=== PATIENT | male | born 1970 | race Two or more races ===

== ENCOUNTER → 2023-05-17 09:11 | Outpatient (REF) | payer BC, SELFPAY | LOC: RAD 09:11 | PROVIDERS: ATTENDING PHYSICIAN Internal Medicine Pulmonary Disease | DX: K85.80 Other acute pancreatitis without necrosis or infection (principal) | CPT/HCPCS: 76700 ==

== ENCOUNTER → 2024-08-03 14:39 | Outpatient (REF) | payer BC, SELFPAY | LOC: HWRAD 14:39 | PROVIDERS: ATTENDING PHYSICIAN Internal Medicine Pulmonary Disease | DX: I10 Essential (primary) hypertension (principal); I50.9 Heart failure, unspecified; M10.9 Gout, unspecified | CPT/HCPCS: 76770 ==

== ENCOUNTER → 2024-08-13 08:17 | Outpatient (REF) | payer BC, SELFPAY | LOC: REG 08:17 | PROVIDERS: ATTENDING PHYSICIAN Internal Medicine Pulmonary Disease | DX: J45.909 Unspecified asthma, uncomplicated (principal) | CPT/HCPCS: 94727; 94729; 88738; 94060 ==

== ENCOUNTER → 2024-09-01 06:40 | Outpatient (REF) | payer BC, SELFPAY | LOC: MRI 06:40 | PROVIDERS: ATTENDING PHYSICIAN Internal Medicine Pulmonary Disease | DX: R51.9 Headache, unspecified (principal); Z82.49 Family history of ischemic heart disease and other diseases of the circulatory system | CPT/HCPCS: 70544 ==

== ENCOUNTER 2024-11-24 16:39 | Emergency (ER) | payer BC, SELFPAY ==
[2024-11-24 16:42] VITALS: BP 125/84
--- NOTE | 2024-11-24 17:46 | ED.GENMED ---
History of Present Illness
General
Chief Complaint: Abdominal Pain
Source: patient and spouse
Exam Limitations: none
Time Seen by Provider: 11/24/24 17:22
Nursing documentation reviewed up to this point in time: agreed with
History of Present Illness
History of Present Illness:
Patient is a 54-year-old male with history of diverticulitis, diabetes who presents to the emergency department with abdominal pain. Patient states he was woken up by abdominal pain this morning around 2 AM and describes a cramping type pain
central abdomen radiating into his right side. Pain has been relatively constant and 9/10 in severity. He denies any known fever although has felt 'chilly'. He has not had any episodes of vomiting. He does report a few episodes of diarrhea over
the past few days although now feels constipated. He denies any dysuria or hematuria.
Patient does report history of diverticulitis although the symptoms typically present with pain in his left lower abdomen. The quality of this pain does feel similar however location is different.
Patient did contact his primary care provider who recommended evaluation in the emergency department CT imaging to rule out diverticulitis or pancreatitis.
Patient has had a past appendectomy.
Past History
Past History
ED Past Medical History: NIDDM and Other (diverticululitis October 2012, July 2016)
ED Past Surgical History: None
Social History
Tobacco: Non-smoker
Alcohol: None
Drug: None
Personal:
Living: with family
Employment: Employed (architecture consultant)
Family History
Family History: Other (nc)
Review of Systems
Review of Systems
Allergies reviewed?: Yes
All Other Systems: ROS reviewed and negative except as documented in HPI and ROS
Phy Exam
Physical Exam
Physical Exam:
Vitals: Patient's vital signs are stable. Afebrile
General: Patient is well appearing, no acute distress. Nontoxic appearing
Skin: Warm and dry, no rashes or lesions
Head: Normocephalic, atraumatic
Eyes: Sclera nonicteric. EOMs intact. No nystagmus.
Throat: Protecting airway
Neck: Normal ROM, no cervical spine tenderness, no meningismus
Cardiac: Regular rate and rhythm, no murmurs.
Pulm: Normal respiratory effort, no wheezes, rales, rhonchi heard on exam
Abdomen: Abdomen soft. Mild tenderness in lower abdomen both suprapubic/right lower quadrant. No rebound tenderness or guarding. No tenderness in right upper quadrant with negative Boothe sign. No CVA tenderness
Extremities: No evidence of cyanosis or edema
Neuro: AAOx3. Grossly intact.
Psychiatric: Normal affect.
Course
Orders/Labs/Results
Orders:
Orders
11/24/24 17:31
0.9% Sodium Chloride 1000 ml [Nss] 1,000 ml IV BOLUS
Ketorolac [Toradol] 15 mg IV NOW STA
11/24/24 17:32
CT Abd/pelvis W Iv Cont Urgent
Comment: hx diverticulitis
Reason For Exam: lower abdominal pain
11/24/24 18:38
Complete Blood Count/With Diff Urgent
Comprehensive Metabolic Panel Urgent
Lipase Urgent
11/24/24 20:01
Urinalysis Reflex To Culture Urgent
Date Specimen was Collected: 11/24/24
Time Specimen was Collected: 19:59
Urine Microscopic Reflex Cult Urgent
11/24/24 20:26
HYDROmorphone [Dilaudid] 0.5 mg IV NOW STA
11/24/24 20:55
Amoxicillin 875 mg/Clav 125 mg [Augmentin 875 mg/125 mg] 1 tablet PO NOW STA
Abnormal Lab Results
11/24/24 11/24/24
18:38 20:01
Absolute Neuts (auto) 7.6 H 10^3/uL
(1.4-6.5)
Absolute Monos (auto) 1.1 H 10^3/uL
(0.1-0.6)
Lymphocytes % 16.0 L %
(20.5-51.1)
Monocytes % 10.6 H %
(1.7-9.3)
Glucose 109 H mg/dl
(70-99)
Urine Ketones 1+ A
(Negative)
Ur Occult Blood Reflex 1+ A
(Negative)
Urine Bacteria (Reflex) Few A
(Negative)
11/24/24 18:38
11/24/24 18:38
Vital Signs
Initial and Last Documented VS:
Initial Vital Signs
Temp Pulse Resp BP Pulse Ox
97.7 F 84 18 125/84 98
11/24/24 16:42 11/24/24 16:42 11/24/24 16:42 11/24/24 16:42 11/24/24 16:42
Last Documented Vital Signs
Temp Pulse Resp BP Pulse Ox
97.7 F 88 22 113/84 98
11/24/24 16:42 11/24/24 21:00 11/24/24 21:00 11/24/24 21:00 11/24/24 21:00
MDM/Problems Addressed
Differential Diagnosis Includes:
Not limited to: Diverticulitis, colitis, constipation, renal colic, cholecystitis, cystitis, etc.
MDM/Problems Addressed:
54-year-old male with one day of lower abdominal discomfort. No known fevers, vomiting. He does report a few days of proceeding diarrhea. History of diverticulitis. Vitals and physical exam as above. Patient non-toxic appearing. Abdomen soft with
mild tenderness in central lower abdomen. No rebound tenderness or guarding.
Differential as above. Patient does have hx of an appendectomy. Possibly sigmoid diverticulitis given patient�s history. Less likely biliary etiology or pancreatitis given location of pain.
ED plan: labs, UA, CT scan abdomen/pelvis. Will treat pain and give IV fluids.
Update: labs without any clinically significant abnormalities. UA without evidence of infection. CT scan reveals uncomplicated sigmoid diverticulitis. No evidence of perforation or abscess.
Patient�s pain is relatively controlled in ED. Given patient is afebrile with no leukocytosis or any evidence of complications on imaging - feel appropriate for outpatient tx with oral antibiotics. Patient agrees and is comfortable with discharge
home. Will start patient on course of Augmentin. Discussed clear liquid diet, Tylenol for pain. Advised primary care follow up in a few days to ensure symptoms improving. Strict return precautions discussed. Patient and patient�s comfortable
with plan.
Chronic conditions affecting care:
History of diverticulitis
Acute Exacerbation and/or Progression of Chronic Illness:
Acute sigmoid diverticulitis
*Radiology
Radiology exam reviewed: radiology read reviewed
*Pulse Oximetry
SaO2: 98
Oxygen Mode of Delivery: Room air
Patient hypoxic: no
*EKG
Interpreted by ED Provider?: NA
*Accreditation Specialist Interpretation
Rate: Accreditation Specialist- N/A
*Critical Care Note
Total Time (30-74mins, 75-104mins- exclusive of procedures): Not Applicable
ED Attending Note
-
Portions of this chart may have been created with voice recognition software.� Occasional wrong word or��sound alike� substitutions may have occurred due to the inherent limitations of voice recognition software.
Discharge Plan
Departure
Patient Disposition: Home (Routine Discharge)
Date of Disposition: 11/24/24
Time of Disposition: 20:56
Patient with high blood pressure during this ER visit?: No
Condition: Good
Discharge Problem:
Acute diverticulitis
Instructions: Clear Liquid Diet, Diverticulitis (DC), Low-fiber diet
Prescriptions:
New
amoxicillin-pot clavulanate 875-125 mg tablet
1 tab PO BID 10 Days Qty: 20 0RF
No Action
cholecalciferol (vitamin D3) 2,000 UNIT tablet
2,000 unit PO DAILY
metformin 500 MG tablet extended release 24 hr
500 mg PO DAILY
metronidazole 500 MG tablet
500 mg PO TID Qty: 30 0RF
Rx Instructions:
no alcohol while taking
levofloxacin [Levaquin] 750 MG tablet
750 mg PO DAILY Qty: 10 0RF
metronidazole 500 MG tablet
500 mg PO TID Qty: 21 0RF
levofloxacin 500 MG tablet
500 mg PO DAILY Qty: 7 0RF
Referrals:
Gage Barragan MD [Family Provider, Internal Medicine]
Pascual Muñoz MD [Active, Gastroenterology] - Next open appointment
Activity Restrictions/Additional Instructions:
RETURN TO THE EMERGENCY DEPARTMENT WITH ANY FEVER, WORSENING/PERSISTENT ABDOMINAL PAIN, INTRACTABLE NAUSEA/VOMITING, SIGNS OF SEVERE DEHYDRATION, WORSENING CURRENT SYMPTOMS, OR ANY OTHER CONCERNS
- As discussed�your CT scan showed evidence of diverticulitis of your sigmoid colon.
- A prescription for oral antibiotics has been sent to your pharmacy which you should take twice a day for the next 10 days. You can take Tylenol and/or Motrin as needed for pain. It is important stay well-hydrated. I would recommend a clear
liquid diet over the next few days, advance to low fiber, and then slowly advance as tolerated
- Follow-up with your primary care provider within the next week to ensure symptoms are improving. I would also recommend follow-up with your GI doctor�I have provided you an additional contact number above.
Monitor your symptoms closely and return to the emergency department with any acute worsening/new symptoms or any other concerns
Interventions
Interventions:
*Risk Screen - Suicide Last Done: 11/24/24 16:42
*General Assessment Last Done: 11/24/24 18:52
*Neglect/Abuse Screening Last Done: 11/24/24 21:20
*ED- Fall Risk Assessment Last Done: 11/24/24 18:52
*ED COVID-19 Vaccine History Last Done: 11/24/24 21:20
*Nursing Disposition Last Done: 11/24/24 21:20
VJ-Apzzde-Wvxhxmhawk Assessment Last Done: 11/24/24 18:52
Discharge Date and Time
Discharge Date/Time: 11/24/24 21:27
Print Language: WELSH
[2024-11-24] MEDS: NSS 1000 IV (18:37)
[2024-11-24] MEDS: TORADOL 15 MG IV (18:39)
[2024-11-24 18:44] VITALS: BP 117/76
[2024-11-24 18:48] VITALS: BMI 27.4
[2024-11-24 18:48] LABS: Hematocrit 40.7 % (39.0-52.0); Hemoglobin 13.7 g/dL (13.0-18.0); Mean Corp Hgb Conc. 33.7 g/dL (33.0-37.0); Mean Corpuscular Volume 85.7 fL (80.0-94.0); Nucleated Red Blood Cells % 0 % (-); Platelet Count 222 10^3/uL (130-400); Red Cell Dist. Width 12.7 % (11.5-14.5)
[2024-11-24 19:00] VITALS: BP 108/67
[2024-11-24 19:04] LABS: ALT (SGPT) 34 U/L (0-50); AST (SGOT) 24 U/L (17-59); Albumin 4.5 g/dl (3.5-5.0); Alkaline Phosphatase 56 U/L (38-126); Blood Urea Nitrogen 9 mg/dl (9-20); Calcium 8.9 mg/dl (8.4-10.2); Carbon Dioxide 30 mmol/L (22-30); Chloride 102 mmol/L (98-107); Estimated Creatinine Clearance 105 ml/min; Glucose 109 mg/dl (70-99); Lipase 67 U/L (23-300); Potassium 3.6 mmol/L (3.5-5.1); Sodium 137 mmol/L (135-145); Total Protein 7.3 g/dl (6.3-8.2); eGFR > 60.00
[2024-11-24 20:02] VITALS: BP 119/73
[2024-11-24 20:14] LABS: Urine Character Clear (Clear)
[2024-11-24 20:31] LABS: Urine Red Blood Cell 0-2 /HPF (0-2); Urine Squamous Cell 0-2 /LPF (Few); Urine White Cell 0-2 /HPF (0-5)
[2024-11-24] MEDS: DILAUDID 0.5 MG IV (20:48)
[2024-11-24 21:00] VITALS: BP 113/84
[2024-11-24] MEDS: AUGMENTIN 875 MG/125 MG 1 TABLET PO (21:10)
== END 2024-11-24 21:27 | disposition home or self-care (01) ==
LOC: EMR 16:39
PROVIDERS: Physician Assistant; EMERGENCY PHYSICIAN Emergency Medicine; FAMILY PHYSICIAN Internal Medicine Pulmonary Disease
DX: K57.32 Diverticulitis of large intestine without perforation or abscess without bleeding (principal); E11.9 Type 2 diabetes mellitus without complications; Z79.84 Long term (current) use of oral hypoglycemic drugs
CPT/HCPCS: 99284; 96374; 96375; 96361; 74177; 80053; 81003; 81015; 83690; 85025; 96360; Q9967

== ENCOUNTER 2024-12-07 12:46 | Emergency (ER) | payer BC, SELFPAY ==
[2024-12-07 12:47] VITALS: BP 120/72
[2024-12-07 14:23] VITALS: BMI 25.8
[2024-12-07 14:40] LABS: Hematocrit 38.5 % (39.0-52.0); Hemoglobin 12.5 g/dL (13.0-18.0); Mean Corp Hgb Conc. 32.5 g/dL (33.0-37.0); Mean Corpuscular Volume 85.7 fL (80.0-94.0); Nucleated Red Blood Cells % 0 % (-); Platelet Count 246 10^3/uL (130-400); Red Cell Dist. Width 12.9 % (11.5-14.5)
[2024-12-07] MEDS: TORADOL 15 MG IV (14:44)
[2024-12-07 14:59] LABS: ALT (SGPT) 36 U/L (0-50); AST (SGOT) 27 U/L (17-59); Albumin 4.2 g/dl (3.5-5.0); Alkaline Phosphatase 49 U/L (38-126); Blood Urea Nitrogen 10 mg/dl (9-20); Calcium 8.7 mg/dl (8.4-10.2); Carbon Dioxide 26 mmol/L (22-30); Chloride 107 mmol/L (98-107); Estimated Creatinine Clearance 119 ml/min; Glucose 96 mg/dl (70-99); Potassium 4.2 mmol/L (3.5-5.1); Sodium 138 mmol/L (135-145); Total Protein 6.9 g/dl (6.3-8.2); eGFR > 60.00
[2024-12-07 16:07] VITALS: BP 109/75
--- NOTE | 2024-12-07 17:57 | ED.GENMED ---
History of Present Illness
General
Chief Complaint: Abdominal Pain
Source: patient and family
Time Seen by Provider: 12/07/24 13:38
History of Present Illness
History of Present Illness:
Note:
CHIEF COMPLAINT(S)
Abdominal pain
HISTORY OF PRESENT ILLNESS
The patient is a 54-year-old male who presented with abdominal pain. The pain is described as being across the front of the lower abdomen, both left and right sides, and began on a Saturday. Two weeks prior, the patient was diagnosed with
diverticulitis, originally presenting on the left side. He was treated with amoxicillin and clavulanate (Augmentin), completing the course the Saturday before the recurrence of pain. The abdominal discomfort resumed the following day. The patient
denies any fever but reports experiencing chills that Saturday. He denies nausea, vomiting, diarrhea, constipation, and blood in the stool. At present, the patients pain is most severe across the bottom of the abdomen.
PAST MEDICAL AND SURGICAL HISTORY
The patient has a history of diverticulitis diagnosed two weeks prior. He also has high cholesterol, for which he takes rosuvastatin, and diabetes managed with metformin.
MEDICATIONS
- Rosuvastatin for hypercholesterolemia
- Metformin for diabetes
PHYSICAL EXAM
General: Alert, no acute distress.
Abdominal: Moderate tenderness in left lower quadrant, suprapubic area, and right lower quadrant; mild tenderness in upper abdomen. No rebound or guarding. Bowel sounds present.
Cardiovascular: Heart rate regular, without murmur.
Respiratory: Lungs are clear on auscultation.
PLAN
- A repeat abdominal scan to evaluate for potential abscess, recurrent infection, or perforation.
- Administer Toradol for pain management.
- Follow-up with the patients retail coverage merchandiser next Saturday.
DIFFERENTIAL DIAGNOSIS
The Differential Diagnosis includes, in no particular order and is not limited to:
1. Recurrent diverticulitis
2. Abscess formation
3. Bowel perforation
4. Appendicitis
5. Inflammatory bowel disease
6. Gallbladder disease
7. Urinary tract infection
8. Colitis
9. Pancreatitis
10. Gastroenteritis
CARE-UPDATE
12/07/24 - 17:56
The patient shows signs of improving diverticulitis per recent imaging, although there is concern that it might be worsening due to lack of an intermediate image for comparison. The patient experiences worsening pain, raising suspicion of potential
deterioration despite absence of perforation or abscess. Plan to treat with antibiotics for one week and follow up with GI specialist to reassess before full completion of antibiotics. Adjustments, including extending the antibiotic course, may be
considered based on the patients status at the next appointment. The patient is switched to a regimen of Levoquin and Flagyl, medications they have responded well to previously. A 10-day prescription has been issued with the directive to consult
with a physician before the next GI appointment to ensure proper duration of antibiotic therapy.
Disposition:
SUMMARY OF ENCOUNTER
The 54-year-old male presented with worsening abdominal pain following recent treatment for diverticulitis. A CT scan showed signs of improving inflammatory signal, but there is concern about potential worsening of the condition due to the increased
pain. The patient has previously responded well to treatment with levofloxacin and metronidazole. A one-week course of these antibiotics was initiated as he has an upcoming appointment with his retail coverage merchandiser.
DISPOSITION
Discharge.
ASSESSMENT
Worsening abdominal pain, with history of recent diverticulitis. CT scan shows improved inflammation, but pain suggests possible recurrent issues.
PLAN
Initiate one-week treatment with levofloxacin and metronidazole. Follow up with retail coverage merchandiser this week.
PATIENT EDUCATION AND COUNSELING
Explained the importance of completing the antibiotic course and advised on signs of complications to watch out for, such as fever or severe abdominal pain.
FOLLOW-UP INSTRUCTIONS
Patient to follow up with retail coverage merchandiser this week.
MEDICATION RECONCILIATION
Levofloxacin and metronidazole prescribed for a one-week course.
MEDICAL DECISION MAKING
-Number and Complexity of Problems Addressed: Chronic conditions affecting care include history of diverticulitis.
-Risk: Prescription medication was prescribed as the patient has responded well to this regimen in the past.
DIAGNOSIS
Recurrent diverticulitis (ICD-10: K57.33).
Past History
Past History
ED Past Medical History: NIDDM and Other (diverticululitis October 2012, July 2016)
ED Past Surgical History: None
Social History
Tobacco: Non-smoker
Alcohol: None
Drug: None
Personal:
Living: with family
Employment: Employed (it data architect)
Family History
Family History: Other (nc)
Phy Exam
Physical Exam
Physical Exam:
.
Course
Orders/Labs/Results
Orders:
Orders
12/07/24 13:50
CT Abd/pelvis W Iv Cont Urgent
Comment:
Reason For Exam: lower abd pain, recent diverticulitis
12/07/24 14:23
Complete Blood Count/With Diff Urgent
Comprehensive Metabolic Panel Urgent
12/07/24 14:30
Ketorolac [Toradol] 15 mg IV NOW STA
12/07/24 17:56
LevoFLOXacin [Levaquin] 500 mg PO NOW STA
MetroNIDAZOLE [Flagyl] 500 mg PO NOW STA
Morphine Sulfate 4 mg IV NOW STA
Abnormal Lab Results
12/07/24
14:23
RBC 4.49 L 10^6/uL
(4.70-6.10)
Hgb 12.5 L g/dL
(13.0-18.0)
Hct 38.5 L %
(39.0-52.0)
MCHC 32.5 L g/dL
(33.0-37.0)
12/07/24 14:23
12/07/24 14:23
Vital Signs
Initial and Last Documented VS:
Initial Vital Signs
Temp Pulse Resp BP Pulse Ox
98.0 F 60 16 120/72 98
12/07/24 12:47 12/07/24 12:47 12/07/24 12:47 12/07/24 12:47 12/07/24 12:47
Last Documented Vital Signs
Temp Pulse Resp BP Pulse Ox
98.0 F 54 15 109/75 97
12/07/24 12:47 12/07/24 16:07 12/07/24 16:07 12/07/24 16:07 12/07/24 17:58
*Pulse Oximetry
SaO2: 97
Oxygen Mode of Delivery: Room air
Patient hypoxic: no
*Critical Care Note
Total Time (30-74mins, 75-104mins- exclusive of procedures): Not Applicable
ED Attending Note
-
Portions of this chart may have been created with voice recognition software.� Occasional wrong word or��sound alike� substitutions may have occurred due to the inherent limitations of voice recognition software.
Discharge Plan
Departure
Patient Disposition: Home (Routine Discharge)
Date of Disposition: 12/07/24
Time of Disposition: 17:57
Patient with high blood pressure during this ER visit?: No
Discharge Problem:
Abdominal pain
Instructions: Abdominal Pain
Prescriptions:
New
levofloxacin 500 mg tablet
500 mg PO DAILY Qty: 9 0RF
metronidazole 500 mg tablet
500 mg PO TID Qty: 30 0RF
No Action
cholecalciferol (vitamin D3) 2,000 UNIT tablet
2,000 unit PO DAILY
metformin 500 MG tablet extended release 24 hr
500 mg PO DAILY
metronidazole 500 MG tablet
500 mg PO TID Qty: 30 0RF
Rx Instructions:
no alcohol while taking
levofloxacin [Levaquin] 750 MG tablet
750 mg PO DAILY Qty: 10 0RF
metronidazole 500 MG tablet
500 mg PO TID Qty: 21 0RF
levofloxacin 500 MG tablet
500 mg PO DAILY Qty: 7 0RF
amoxicillin-pot clavulanate 875-125 mg tablet
1 tab PO BID 10 Days Qty: 20 0RF
Referrals:
Gage Barragan MD [Family Provider, Internal Medicine]
Activity Restrictions/Additional Instructions:
Please see your doctor or retail coverage merchandiser in the next 1 week for follow-up and reevaluation. Stick to a low residue diet. Return immediately for fevers, vomiting, worsening pain or any other concerns.
Interventions
Interventions:
*Risk Screen - Suicide Last Done: 12/07/24 12:47
*General Assessment Last Done: 12/07/24 14:24
*Neglect/Abuse Screening Last Done: 12/07/24 12:47
*ED- Fall Risk Assessment Last Done: 12/07/24 14:24
*ED COVID-19 Vaccine History Last Done: 12/07/24 14:24
*Nursing Disposition Last Done: 12/07/24 18:48
VZ-Xaakrv-Wbvrmatfbq Assessment Last Done: 12/07/24 14:24
Discharge Date and Time
Discharge Date/Time: 12/07/24 18:49
Print Language: OCCITAN
[2024-12-07] MEDS: LEVAQUIN 500 MG PO (18:20)
[2024-12-07] MEDS: FLAGYL 500 MG PO (18:21)
[2024-12-07] MEDS: MORPHINE SULFATE 4 MG IV (18:21)
== END 2024-12-07 18:49 | disposition home or self-care (01) ==
LOC: EMR 12:46
PROVIDERS: EMERGENCY PHYSICIAN Emergency Medicine; FAMILY PHYSICIAN Internal Medicine Pulmonary Disease
DX: R10.30 Lower abdominal pain, unspecified (principal); K57.32 Diverticulitis of large intestine without perforation or abscess without bleeding; E11.9 Type 2 diabetes mellitus without complications; E78.00 Pure hypercholesterolemia, unspecified; Z79.84 Long term (current) use of oral hypoglycemic drugs
CPT/HCPCS: 99284; 96375; 96374; 74177; 80053; 85025; Q9967